=== PATIENT | male | born 1965 | race Hispanic/Latino ===

== ENCOUNTER → 2021-11-29 | Outpatient (CLI) | payer BC | END | disposition home or self-care (01) | LOC: RAH 15:02 | PROVIDERS: ATTEND Family Medicine | DX: R10.12 Left upper quadrant pain (principal) | CPT/HCPCS: 74150 ==

== ENCOUNTER 2023-10-05 22:21 | Inpatient (IN) | payer BC, OTHER ==
[~2023-10-05] VITALS: Ht 180.3 cm; Wt 127.0 kg
[2023-10-06 00:59] LABS: BASOPHILS # (AUTO) 0.09 K/uL (0.00-0.20); EOSINOPHILS # (AUTO) 0.29 K/uL (0.00-0.70); EOSINOPHILS % (AUTO) 3.4 % (0.0-8.0); HEMATOCRIT 46.1 % (42-54); IMMATURE GRANULOCYTE ABSOLUTE 0.02 K/uL (0-1); LYMPHOCYTES # (AUTO) 1.9 K/uL (1.0-4.8); LYMPHOCYTES % (AUTO) 22.6 % (21.0-51.0); MEAN CORPUSCULAR HEMOGLOBIN 27.6 pg (27.0-33.0); MEAN CORPUSCULAR HGB CONC 34.1 g/dL (32.0-36.0); MONOCYTES # (AUTO) 0.6 K/uL (0.1-1.0); MONOCYTES % (AUTO) 7.5 % (3.0-13.0); NEUTROPHILS # (AUTO) 5.6 K/uL (1.8-7.7); NEUTROPHILS % (AUTO) 65.3 % (40.0-77.0); PLATELET COUNT (AUTO) 136 K/uL (130-400); RED BLOOD CELL COUNT(AUTO) 5.69 MIL/uL (4.50-6.20); RED CELL DISTRIBUTION WIDTH 13.9 % (11.0-15.5); WHITE BLOOD COUNT (AUTO) 8.6 K/uL (4.8-10.8)
[2023-10-06 01:09] LABS: INR 0.98 (0.85-1.15); PROTHROMBIN TIME 11.6 SEC (9.6-11.6)
[2023-10-06 01:10] LABS: PARTIAL THROMBOPLASTIN TIME 29.3 SEC (26.3-35.5)
[2023-10-06 01:12] LABS: CREATININE 1.2 mg/dL (0.5-1.3); POTASSIUM 3.7 mmol/L (3.5-5.1)
[2023-10-06 02:10] LABS: ERYTHROCYTE SEDIMENTATION RATE 5 MM/HR (0-20)
[2023-10-06] MEDS: ZOSYN 3.375GM +NS 50ML IVPB SCH (02:12)
[2023-10-06] MEDS: 1/2 NS 1000ML 1,000 ML IV SCH (02:14)
[2023-10-06] MEDS: ONDANSETRON 4MG INJ IVP PRN (02:16)
[2023-10-06] MEDS: HYDROMORPHONE 0.5 MG SYG (0.5MG/0.5ML) IVP PRN (02:17)
[2023-10-06 06:55] VITALS: BP 125/72; PULSE 54; RESP 20
[2023-10-06] MEDS ORDERED: LOSA1TAB42 PO (07:53)
[2023-10-06 08:00] VITALS: O2SAT 98
[2023-10-06 08:15] LABS: HEMATOCRIT 41.8 % (42-54); MEAN CORPUSCULAR HEMOGLOBIN 27.5 pg (27.0-33.0); MEAN CORPUSCULAR HGB CONC 33.7 g/dL (32.0-36.0); MEAN CORPUSCULAR VOLUME 81.5 fL (79-99); RED BLOOD CELL COUNT(AUTO) 5.13 MIL/uL (4.50-6.20); RED CELL DISTRIBUTION WIDTH 13.7 % (11.0-15.5); WHITE BLOOD COUNT (AUTO) 6.4 K/uL (4.8-10.8)
[2023-10-06] MEDS: 0.9%NACL 1000ML 1,000 ML IV SCH (08:55)
[2023-10-06] MEDS: LOSARTAN 100 MG TABLET PO SCH (08:56)
[2023-10-06] MEDS: HYDROCHLOROTHIAZIDE 25 MG TABLET PO SCH (08:56)
[2023-10-06] MEDS ORDERED: IOHEXOL 350 MG/ML 100ML INFUS..BTL IV ONE (09:00)
[2023-10-06] MEDS ORDERED: NON-FORMULARY MEDICATION 1 EACH (Losartan/Hydrochlorothiazide (Losartan-Hctz 100-12.5 mg T PO SCH (09:00)
[2023-10-06 12:00] VITALS: BP 98/45; PULSE 48; RESP 19
[2023-10-06 16:00] VITALS: BP 97/45; PULSE 51; RESP 18
[2023-10-06 20:00] VITALS: BP 95/42; PULSE 55; RESP 18; O2SAT 98
[2023-10-07] VITALS: BP 95/46; PULSE 54; RESP 18
[2023-10-07 04:00] VITALS: BP 106/50; PULSE 55; RESP 18
[2023-10-07 05:27] LABS: BASOPHILS # (AUTO) 0.07 K/uL (0.00-0.20); BASOPHILS % (AUTO) 1.1 % (0.0-5.0); EOSINOPHILS # (AUTO) 0.46 K/uL (0.00-0.70); EOSINOPHILS % (AUTO) 7.3 % (0.0-8.0); HEMATOCRIT 45.6 % (42-54); IMMATURE GRANULOCYTE ABSOLUTE 0.02 K/uL (0-1); LYMPHOCYTES # (AUTO) 1.3 K/uL (1.0-4.8); LYMPHOCYTES % (AUTO) 20.3 % (21.0-51.0); MEAN CORPUSCULAR HEMOGLOBIN 27.9 pg (27.0-33.0); MEAN CORPUSCULAR HGB CONC 33.3 g/dL (32.0-36.0); MEAN CORPUSCULAR VOLUME 83.8 fL (79-99); MONOCYTES # (AUTO) 0.5 K/uL (0.1-1.0); MONOCYTES % (AUTO) 8.6 % (3.0-13.0); NEUTROPHILS # (AUTO) 3.9 K/uL (1.8-7.7); NEUTROPHILS % (AUTO) 62.4 % (40.0-77.0); PLATELET COUNT (AUTO) 128 K/uL (130-400); RED BLOOD CELL COUNT(AUTO) 5.44 MIL/uL (4.50-6.20); RED CELL DISTRIBUTION WIDTH 13.7 % (11.0-15.5); WHITE BLOOD COUNT (AUTO) 6.3 K/uL (4.8-10.8)
[2023-10-07 05:32] LABS: ALBUMIN 3.9 g/dL (3.5-5.0); BILIRUBIN,TOTAL 0.6 mg/dL (0.2-1.0); CREATININE 1.3 mg/dL (0.5-1.3); TOTAL PROTEIN, SERUM 7.5 g/dL (6.0-8.3)
[2023-10-07 08:00] VITALS: BP 114/60; PULSE 55; RESP 18; O2SAT 98
[2023-10-07 12:00] VITALS: BP 113/57; PULSE 55; RESP 18
[2023-10-07] MEDS ORDERED: AMOX-426 PO (13:22)
[2023-10-07] MEDS ORDERED: AMOX1TAB16 PO (13:24)
[2023-10-07] MEDS ORDERED: LIDO5CRE18 TP (13:37)
[2023-10-07] MEDS ORDERED: KETO10 PO (13:40)
[2023-10-07] MEDS ORDERED: DOCU-116 PO (13:41)
== END 2023-10-07 14:30 | disposition home or self-care (01) | DRG 395 ==
LOC: EDH 22:21 → EDHIP 10-06 00:59 → OBSVTOIN 10-06 00:59 → 4AH 10-06 03:27
PROVIDERS: ADMIT Internal Medicine; ATTEND Internal Medicine
DX: K60.0 Acute anal fissure (principal); I10 Essential (primary) hypertension; E11.9 Type 2 diabetes mellitus without complications
CPT/HCPCS: 36415; 74178; 80048; 80053; 83605; 84145; 85025; 85027; 85610; 85651; 85730; 86140; 87040; 96374; 96375; G0378; J1170; J2405; J2543; Q9967

== ENCOUNTER 2023-10-19 18:31 | Inpatient (IN) | payer OTHER ==
[~2023-10-19] VITALS: Ht 180.3 cm; Wt 121.8 kg
[~2023-10-19 18:31] MED LIST: AMOX1TAB16 PO; DOCU-116 PO; KETO10 PO; LIDO5CRE18 TP; LOSA1TAB42 PO
[2023-10-19] MEDS: KETOROLAC 15MG/ML VIAL (15MG/ML) IV PRN (19:59)
[2023-10-19] MEDS: ACETAMINOPHEN 500 MG TABLET PO ONE (21:28)
[2023-10-19] MEDS: LIDOCAINE HCL 2% VISCOUS 15 ML UDCUP PO ONE (21:29)
[2023-10-19] MEDS: HYDROMORPHONE 1 MG INJ IVP ONE (21:30)
[2023-10-20] VITALS (8 sets, daily range): BP systolic 93–147; BP diastolic 50–87; PULSE 44–95; RESP 17–26; O2SAT 96–98
[2023-10-20] MEDS ORDERED: ONDANSETRON 4MG INJ IVP PRN
[2023-10-20] MEDS: DEXTROSE 5 %-0.45 % NACL 1,000 ML IV SCH (00:20)
[2023-10-20] MEDS ORDERED: KETOROLAC 10 MG TABLET PO PRN (02:00)
[2023-10-20 08:59] LABS: HEMATOCRIT 44.6 % (42-54); MEAN CORPUSCULAR HEMOGLOBIN 27.7 pg (27.0-33.0); MEAN CORPUSCULAR HGB CONC 34.3 g/dL (32.0-36.0); MEAN CORPUSCULAR VOLUME 80.8 fL (79-99); RED BLOOD CELL COUNT(AUTO) 5.52 MIL/uL (4.50-6.20); RED CELL DISTRIBUTION WIDTH 13.8 % (11.0-15.5); WHITE BLOOD COUNT (AUTO) 5.6 K/uL (4.8-10.8)
[2023-10-20 09:14] LABS: BILIRUBIN,TOTAL 0.6 mg/dL (0.2-1.0); CREATININE 1.1 mg/dL (0.5-1.3); POTASSIUM 3.7 mmol/L (3.5-5.1); TOTAL PROTEIN, SERUM 7.9 g/dL (6.0-8.3)
[2023-10-20] MEDS: DOCUSATE SODIUM 100 MG CAP PO SCH (09:36)
[2023-10-20] MEDS: AMOX/CLAV 875/125MG TAB PO SCH (09:36)
[2023-10-20] MEDS: LOSARTAN 100 MG TABLET PO SCH (09:36)
[2023-10-20] MEDS: HYDROCHLOROTHIAZIDE 25 MG TABLET PO SCH (09:36)
[2023-10-20] MEDS: HYDROMORPHONE 1 MG INJ IVP PRN (14:43)
[2023-10-21] VITALS (27 sets, daily range): BP systolic 98–137; BP diastolic 53–74; PULSE 51–80; RESP 15–20; O2SAT 95
[2023-10-21] MEDS ORDERED: BUPIVACAINE/PF 0.25% 30ML VIAL IJ ONE (14:38)
[2023-10-21] MEDS ORDERED: LIDOCAINE 1%-EPI 1:100,000 20 ML VIAL ONE (14:38)
[2023-10-21] MEDS ORDERED: SUCCINYLCHOLINE CHLORIDE 20 MG/ML 10 ML VIAL ONE (15:02)
[2023-10-21] MEDS ORDERED: ONDANSETRON 4MG INJ ONE (15:02)
[2023-10-21] MEDS ORDERED: MIDAZOLAM HCL 1 MG/ML 2ML VIAL ONE (15:02)
[2023-10-21] MEDS ORDERED: ROCURONIUM BROMIDE 10MG/1ML 5ML VL ONE (15:03)
[2023-10-21] MEDS ORDERED: PROPOFOL 10 MG/ML 20ML VIAL IV ONE (15:03)
[2023-10-21] MEDS ORDERED: FENTANYL CITRATE PF 50 MCG/1 ML 2ML VIAL ONE (15:04)
[2023-10-21] MEDS: BUPIVACAINE/PF 0.25% 30ML VIAL IJ ONE (15:34)
[2023-10-22] VITALS: BP 122/73; PULSE 55; RESP 18
[2023-10-22 04:00] VITALS: BP 131/74; PULSE 61; RESP 18
[2023-10-22 07:57] VITALS: BP 133/80; PULSE 64; RESP 20
[2023-10-22 08:30] VITALS: O2SAT 100
[2023-10-22] MEDS: POLYETHYLENE GLYCOL 3350 17 GM POWD.PACK PO ONE (10:12)
[2023-10-22 11:41] VITALS: BP 119/65; PULSE 57; RESP 20
[2023-10-22 15:05] VITALS: BP 115/63; PULSE 52; RESP 20
[2023-10-22] MEDS: MAGNESIUM HYDROXIDE 30 ML/UDCUP PO SCH (16:22)
== END 2023-10-22 17:15 | disposition home or self-care (01) | DRG 349 ==
LOC: EDH 18:31 → EDHIP 23:56 → 4AH 10-20 01:14
PROVIDERS: ADMIT Internal Medicine; ATTEND Internal Medicine
PROC: 0D8R0ZZ Division of Anal Sphincter, Open Approach (ICD-10-PCS; principal; 2023-10-21 15:10)
DX: K60.2 Anal fissure, unspecified (principal); I10 Essential (primary) hypertension
CPT/HCPCS: 36415; 80053; 85027; 96374; G0378; J0330; J1170; J1885; J2250; J2405; J2704; J3010; J3490; J7042; A4216; A4222; A4223; A4600; A4649; A4930; J0665

== ENCOUNTER → 2024-01-29 | Outpatient (CLI) | payer OTHER ==
[2024-01-29 12:35] LABS: ALBUMIN 4.3 g/dL (3.5-5.0); BILIRUBIN,DIRECT 0.1 mg/dL (0.0-0.3); BILIRUBIN,TOTAL 0.5 mg/dL (0.2-1.0); TOTAL PROTEIN, SERUM 8.2 g/dL (6.0-8.3)
== END | disposition home or self-care (01) ==
LOC: LAB 11:15
PROVIDERS: ATTEND Internal Medicine Cardiovascular Disease
DX: I10 Essential (primary) hypertension (principal); E78.5 Hyperlipidemia, unspecified
CPT/HCPCS: 36415; 80061; 80076